=== PATIENT | male | born 1950 | race Caucasian/White ===

== ENCOUNTER → 2017-04-02 | Outpatient (CLI) | payer OTHER | LOC: MW.CHIM 08:15 | PROVIDERS: ATTEND Internal Medicine | DX: A04.7 Enterocolitis due to Clostridium difficile (principal) | CPT/HCPCS: 83630; 87046; 87324; 87899 ==

== ENCOUNTER → 2017-04-11 | Outpatient (CLI) | payer OTHER | LOC: MW.CHIM 10:36 | PROVIDERS: ATTEND Internal Medicine | DX: A04.7 Enterocolitis due to Clostridium difficile (principal) | CPT/HCPCS: 83630; 87046; 87324; 87798; 87899 ==

== ENCOUNTER 2017-05-02 10:06 | Day surgery (SDC) | payer OTHER ==
[~2017-05-02 10:06] MED LIST: Lactated Ringers 1,000 ML IV SCH; Lidocaine 2% 5 ML SDV ONE; Propofol 200 MG/20 ML SDV ONE; fentaNYL 100 MCG/2 ML SDV ONE
--- NOTE | 2017-05-02 11:07 | PCM.PREANE ---
Preanesthetic Assessment - Anesthesia/Transfusion/Family Hx Anesthesia History: Prior Anesthesia Without Reaction Family History of Anesthesia Reaction: No Transfusion History: No Prior Transfusion(s) Intubation History: Unknown - Review of Systems General: No Symptoms Pulmonary: No Symptoms Cardiovascular: No Symptoms Gastrointestinal: Abdominal pain Neurological: No Symptoms Other: Reports: None - Physical Assessment O2 Sat by Pulse Oximetry: 94 Respiratory Rate: 14 Vital Signs: Last Vital Signs Temp 36.6 C 05/02/17 10:31 Pulse 112 H 05/02/17 10:31 Resp 14 05/02/17 10:31 BP 138/85 05/02/17 10:31 Pulse Ox 94 L 05/02/17 10:31 Height: 1.8 m Weight: 111.13 kg ASA Class: 2 Mental Status: Alert & Oriented x3 Airway Class: Mallampati = 2 Dentition: Reports: Normal Dentition, Mcnary(s) (multiple upper and lower (front) ) Thyro-Mental Finger Breadths: 2 Mouth Opening Finger Breadths: 3 ROM/Head Extension: Limited/Partial Lungs: Clear to auscultation, Normal respiratory effort Cardiovascular: Regular Rate - Allergies Allergies/Adverse Reactions: Allergies Allergy/AdvReac Type Severity Reaction Status Date / Time febuxostat [From Uloric] Allergy Cannot Verified 04/30/17 08:56 Remember isosorbide Allergy Cannot Verified 04/30/17 08:56 Remember metoprolol Allergy Cannot Verified 04/30/17 08:56 Remember - Blood Blood Available: No - Anesthesia Plan Pre-Op Medication Ordered: None - Acknowledgements Anesthesia Type Planned: MAC Pt an Appropriate Candidate for the Planned Anesthesia: Yes Alternatives and Risks of Anesthesia Discussed w Pt/Guardian: Yes Pt/Guardian Understands and Agrees with Anesthesia Plan: Yes PreAnesthesia Questionnaire HEENT History: Reports: Other (See Below) Other HEENT History: top denture Cardiovascular History: Reports: High Cholesterol, Hypertension Gastrointestinal History: Reports: Chronic Diarrhea, GERD, Other (See Below) (h/ o C. difficile colitis) Genitourinary History: Reports: BPH Musculoskeletal History: Reports: Arthritis, Fracture, Gout Other Musculoskeletal History: hx fx pelvis and left hip Psychiatric History: Reports: Anxiety, Depression Endocrine/Metabolic History: Reports: Obesity/BMI 30+ - Past Surgical History Head Surgeries/Procedures: Reports: None GI Surgical History: Reports: Colonoscopy (x2) Musculoskeletal Surgical History: Reports: Hip Replacement (left THR) - SUBSTANCE USE Smoking Status *Q: Former Smoker Tobacco Use Within Last Twelve Months: No Recreational Drug Use History: No - HOME MEDS Home Medications: Home Meds ALPRAZolam [Xanax] 0.25 mg PO BID PRN 04/30/17 [History] Allopurinol [Zyloprim] 300 mg PO DAILY 04/30/17 [History] Aspirin [[place] Aspirin] 81 mg PO DAILY 04/30/17 [History] Colchicine [Mitigare] 0.6 mg PO ASDIRECTED PRN 04/30/17 [History] Nitroglycerin 1 tab SL ASDIRECTED PRN 04/30/17 [History] Ondansetron [Zofran Odt] 8 mg SL ASDIRECTED PRN 04/30/17 [History] Pantoprazole Sodium 40 mg PO DAILY 04/30/17 [History] Tamsulosin HCl [Flomax] 2 tab PO BID 04/30/17 [History] Testosterone Cypionate 1 injection IM ASDIRECTED 04/30/17 [History] - CURRENT (IN HOUSE) MEDS Current Meds: Current Medications Lactated Ringer's (Ringers, Lactated) 1,000 mls @ 125 mls/hr IV ASDIRECTED NONI Discontinued Medications Fentanyl (Sublimaze) Confirm Administered Dose 100 mcg .ROUTE .STK-MED ONE Stop: 05/02/17 09:59 Lidocaine (Xylocaine-Mpf 2%) Confirm Administered Dose 5 ml .ROUTE .STK-MED ONE Stop: 05/02/17 09:59 Propofol (Diprivan 20 Ml) Confirm Administered Dose 400 mg .ROUTE .STK-MED ONE Stop: 05/02/17 09:59
--- NOTE | 2017-05-02 12:02 | PCM.OPNOTE ---
- General Post-Op/Procedure Note Date of Surgery/Procedure: 05/02/17 Findings: see dict [id number] Pre Op Diagnosis: abd pain Post-Op Diagnosis: diverticulosis Anesthesia Technique: Moderate sedation Primary Surgeon: Osmany Traylor Complications: None Condition: Good
--- NOTE | 2017-05-02 12:18 | PCM.POSTAN ---
POST ANESTHESIA ASSESSMENT - MENTAL STATUS Mental Status: alert, oriented - RESPIRATORY Respiratory Status: respiratory rate WNL, airway patent, O2 saturation stable - CARDIOVASCULAR CV Status: pulse rate WNL, blood pressure stable - GASTROINTESTINAL GI Status: no symptoms - POST OP HYDRATION Hydration Status: adequate & stable - OBSERVATIONS Free Text/Narrative:: no anesthesia problems
[2017-05-02 14:09] VITALS: BP 118/75
--- NOTE | 2017-05-02 16:09 | OR ---
SURGEON: Osmany Traylor MD DATE OF PROCEDURE: 05/02/2017 PREOPERATIVE DIAGNOSIS: Abdominal pain. POSTOPERATIVE DIAGNOSIS: Diverticulosis. COMPLICATIONS: None. PROCEDURE PERFORMED: Colonoscopy. FINDINGS: 1. The patient is easily sedated with FLUE CLEANER and Diprivan. The patient is soundly snoring. 2. Bowel prep was average. Moderate amount of liquid stool. No semi-formed stool. 3. The patient's colon rather straight forward. Cecum indicated by ileocecal fold, one-to-one indentation, and light immittance, and appendix orifice is not observed. Mucosa was examined upon scope pulling out and with some irrigation. The patient has a moderate diverticulosis on the left colon. No signs or symptoms of diverticulitis. No polyp, mass, growth, inflammation, stricture, ulceration, bleeding, AV malformation. The patient does have moderate internal hemorrhoids. No external hemorrhoids, but there was one large anal tag. The patient would benefit from repeat colonoscopy 10 years from today or if clinically indicated otherwise. PROCEDURE IN DETAIL: The patient was taken to the endoscopy room. A time out was called, patient identified, and procedure identified. Diprivan was then administrated. Patient went from awake to sleep, hearing doctor talking or door closing is normal. Perineum inspection and digital examination were then performed. A well- lubricated colonoscope was gently inserted through the rectum, advanced past the rectosigmoid junction, the descending colon, splenic flexure, transverse colon, hepatic flexure, ascending colon, arrived to the cecum. Cecum was identified as dictated in the finding. Then the scope was carefully withdrawn while attention was paid to the mucosal surface for any abnormality. Air will be sucked out during the scope withdrawal. At the rectum, retroflexed to examine any rectal diseases, fistula or hemorrhoids. Patient tolerated procedure well. There were no intraoperative complications, and Dr. Traylor was present throughout the whole procedure. As always, thank you for the kind referral. ISIAH / CECILY /[id number]
== END 2017-05-02 12:45 | disposition home or self-care (01) ==
LOC: MW.SDS 10:06
PROVIDERS: ATTEND Surgery
DX: K57.30 Diverticulosis of large intestine without perforation or abscess without bleeding (principal); E78.00 Pure hypercholesterolemia, unspecified; I10 Essential (primary) hypertension; K21.9 Gastro-esophageal reflux disease without esophagitis; M10.9 Gout, unspecified; M19.90 Unspecified osteoarthritis, unspecified site; F41.9 Anxiety disorder, unspecified; F32.9 Major depressive disorder, single episode, unspecified; E66.9 Obesity, unspecified; Z88.8 Allergy status to other drugs, medicaments and biological substances; Z86.19 Personal history of other infectious and parasitic diseases; Z68.30 Body mass index [BMI] 30.0-30.9, adult; Z98.890 Other specified postprocedural states; Z87.891 Personal history of nicotine dependence; Z79.82 Long term (current) use of aspirin; Z79.899 Other long term (current) drug therapy
CPT/HCPCS: 45378; J3010; J7120; J2704